=== PATIENT | female | born 1970 | race Two or more races ===

== ENCOUNTER 2021-03-24 13:20 | Emergency (ER) | payer OTHER ==
[~2021-03-24] VITALS: Ht 154.9 cm; Wt 72.7 kg
[2021-03-24] MEDS: MORPHINE SULFATE 4 MG/ML INJ. IM ONE (14:22)
--- NOTE | 2021-03-24 14:37 | RAD ---
CT THORACIC SPINE WO 03/24/2021 1:57 PM Indication: TRAUMATIC HEAD AND NECK PAIN, back pain Comparison: None. Technique: CT imaging of the thoracic spine was performed without contrast. Coronal and sagittal ref ormatted images were performed. One or more of the following dose reduction techniques were utilized: Automated exposure control (AEC), Adjustment of mA and/or kV according to patient size, Use of itera tive reconstruction technique such as ASiR, CT scan done according to ALARA and image gently/image wi sely. Findings: The thoracic spine is normally aligned. No acute fracture. Vertebral body heights are maintained with out compression deformity. The intervertebral disc spaces are normal. No aggressive lytic or blastic osseous lesion. No significant spinal canal stenosis or neural foraminal narrowing. The visualized lungs are clear. No pleural effusion. The visualized thoracic aorta is normal caliber. Impression: No acute osseous abnormality of the thoracic spine. Electronically signed by: Adiel Albarran MD (03/24/2021 2:34 PM) [facility]
--- NOTE | 2021-03-24 14:37 | RAD ---
CT HEAD AND C-SPINE WO Date: 03/24/2021 1:57 PM Clinical Indication: Reason: TRAUMATIC HEAD AND NECK PAIN / Spl. Instructions: / History: Comparison: None. Technique: 5 mm axial tomographic images were obtained of the head without contrast. These were view ed on brain and bone windows. CT imaging of the cervical spine was performed without contrast. Coron al and sagittal reformatted images were performed. One or more of the following dose reduction techni ques were utilized: Automated exposure control (AEC), Adjustment of mA and/or kV according to patient size, Use of iterative reconstruction technique such as ASiR, CT scan done according to ALARA and im age gently/image wisely HEAD FINDINGS: The brain parenchyma is normal in attenuation. No intra- or extra-axial mass or fluid collection. No acute hemorrhage. The ventricles are normal in size, shape, and morphology. The marin-white matter mauricio ction is normal. The basilar cisterns are patent. The visualized paranasal sinuses are normal. The visualized portions of the orbits and globes are no rmal. The mastoid air cells are clear. No aggressive osseous lesion or fracture. CERVICAL SPINE FINDINGS: Straightening of the cervical lordosis. No acute fracture. No aggressive lytic or blastic osseous les ion. Mild multilevel degenerative disc height loss. No high-grade spinal canal stenosis or neural foramina l narrowing. The thyroid gland is normal. No cervical lymphadenopathy. The visualized aerodigestive tract is unrem arkable. The visualized lung apices are clear. IMPRESSION: 1. No acute intracranial process. 2. No acute osseous abnormality of the cervical spine. Electronically signed by: Adiel Albarran MD (03/24/2021 2:34 PM) [facility]
--- NOTE | 2021-03-24 14:51 | PHYS DOC ---
Past Medical History Past Surgical History: No Surgical History (JACINTA STOVER MD) General Adult EDM: Chief Complaint: NECK PAIN HPI: HPI: Patient is a 50 year old female who presents with neck pain after work-related injury. Was working at [employer] when boxes fell on the back of her head and neck causing flexion of the neck. Estimated 30-60 pounds weight. Had immediate neck pain and fell to the ground. No loss of consciousness, however she is amnestic to the fall. Complaining of neck pain and arm weakness. States that she has some pain going into her bilateral shoulders but not down into her hands. She feels the weakness is worse in her left arm. (JACINTA STOVER MD) Review of Systems: Review of Systems: Constitutional: Denies fever or chills. [] Eyes: Denies change in visual acuity. [] HENT: Denies nasal congestion or sore throat. [] Respiratory: Denies cough or shortness of breath. [] Cardiovascular: Denies chest pain or edema. [] GI: Denies abdominal pain, nausea, vomiting, bloody stools or diarrhea. [] : Denies dysuria. [] Musculoskeletal: Reports neck pain Integument: Denies rash. [] Neurologic: Reports left arm weakness Endocrine: Denies polyuria or polydipsia. [] Lymphatic: Denies swollen glands. [] Psychiatric: Denies depression or anxiety. [] (JACINTA STOVER MD) Heart Score: C/O Chest Pain: No Risk Factors: Risk Factors: DM, Current or recent (<one month) smoker, HTN, HLP, family history of CAD, obesity. Risk Scores: Score 0 - 3: 2.5% MACE over next 6 weeks - Discharge Home Score 4 - 6: 20.3% MACE over next 6 weeks - Admit for Clinical Observation Score 7 - 10: 72.7% MACE over next 6 weeks - Early Invasive Strategies (JACINTA STOVER MD) C/O Chest Pain: N/A (JUAN BECK DO) Current Medications: Current Medications Medications (Trade) Dose Ordered Sig/Amanda Start Time Stop Time Status Last Admin Dose Admin Morphine Sulfate (Morphine Sulfate) 4 mg 1X ONCE 03/24/21 13:45 03/24/21 13:51 DC 03/24/21 14:22 4 MG (JACINTA STOVER MD) Allergies: Allergies: Allergies Coded Allergies Type Severity Reaction Last Updated Verified No Known Drug Allergies 03/24/21 No (JACINTA STOVER MD) Physical Exam: PE: Constitutional: Tearful, appears acutely uncomfortable HENT: No evidence of facial trauma/bruising. No midface tenderness or deformity. Eyes:conjunctiva normal, no discharge. [] Neck: + Midline C-spine tenderness to palpation going down into the thoracic spine in the midline Cardiovascular:Heart rate regular rhythm, no murmur [] Lungs & Thorax: Bilateral breath sounds clear to auscultation [] Abdomen: Bowel sounds normal, soft, no tenderness, no masses, no pulsatile masses. [] Skin: Warm, dry, no erythema, no rash. [] Back: + Midline thoracic tenderness to palpation Extremities: No tenderness, no cyanosis, no clubbing, ROM intact, no edema. [] Neurologic: Alert, oriented to person, place, time. Face is symmetric. Speech is normal. Cranial nerves III-XII intact. 5/5 strength in bilateral shoulder abduction, extension of the elbow, extension of the wrist 4/5 strength in bilateral pathology laboratory aide strength and elbow flexion (JACINTA STOVER MD) Current Patient Data: Vital Signs: Vital Signs Date Time Temp Pulse Resp B/P (MAP) Pulse Ox O2 Delivery O2 Flow Rate FiO2 03/24/21 14:22 18 100 03/24/21 13:38 97.5 84 227/107 (147) Room Air 97.5 (JACINTA STOVER MD) EKG: EKG: [] (JACINTA STOVER MD) Radiology/Procedures: Radiology/Procedures: [] Impression: [facility] [address] [place], [place] [id number] IMAGING REPORT Signed PATIENT: GABRIEL STEPHENSON ACCOUNT: [id number] : 1970 LOCATION: ER AGE: 50 SEX: F EXAM STATUS: PRE ER ORD. PHYSICIAN: JACINTA STOVER MD REASON: TRAUMATIC HEAD AND NECK PAIN PROCEDURE: CT THORACIC SPINE WO CONTRAST CT THORACIC SPINE WO 03/24/2021 1:57 PM Indication: TRAUMATIC HEAD AND NECK PAIN, back pain Comparison: None. Technique: CT imaging of the thoracic spine was performed without contrast. Coronal and sagittal reformatted images were performed. One or more of the following dose reduction techniques were utilized: Automated exposure control (AEC), Adjustment of mA and/or kV according to patient size, Use of iterative reconstruction technique such as ASiR, CT scan done according to ALARA and image gently/image wisely. Findings: The thoracic spine is normally aligned. No acute fracture. Vertebral body heights are maintained without compression deformity. The intervertebral disc spaces are normal. No aggressive lytic or blastic osseous lesion. No significant spinal canal stenosis or neural foraminal narrowing. The visualized lungs are clear. No pleural effusion. The visualized thoracic aorta is normal caliber. Impression: No acute osseous abnormality of the thoracic spine. Electronically signed by: Heidi Albarran MD (03/24/2021 2:34 PM) [facility] DICTATED and SIGNED BY: HEIDI ALBARRAN MD DATE: 03/24/21 [id number] [facility] [address] [place] [address] IMAGING REPORT Signed PATIENT: GABRIEL STEPHENSON ACCOUNT: [id number] : 1970 LOCATION: ER AGE: 50 SEX: F EXAM STATUS: PRE ER ORD. PHYSICIAN: JACINTA STOVER MD REASON: TRAUMATIC HEAD AND NECK PAIN PROCEDURE: CT HEAD AND CERVICAL SPINE WO CT HEAD AND C-SPINE WO Date: 03/24/2021 1:57 PM Clinical Indication: Reason: TRAUMATIC HEAD AND NECK PAIN / Spl. Instructions: / History: Comparison: None. Technique: 5 mm axial tomographic images were obtained of the head without contrast. These were viewed on brain and bone windows. CT imaging of the cervical spine was performed without contrast. Coronal and sagittal reformatted images were performed. One or more of the following dose reduction techniques were utilized: Automated exposure control (AEC), Adjustment of mA and/or kV according to patient size, Use of iterative reconstruction technique such as ASiR, CT scan done according to ALARA and image gently/image wisely HEAD FINDINGS: The brain parenchyma is normal in attenuation. No intra- or extra-axial mass or fluid collection. No acute hemorrhage. The ventricles are normal in size, shape, and morphology. The marin-white matter junction is normal. The basilar cisterns are patent. The visualized paranasal sinuses are normal. The visualized portions of the orbits and globes are normal. The mastoid air cells are clear. No aggressive osseous lesion or fracture. CERVICAL SPINE FINDINGS: Straightening of the cervical lordosis. No acute fracture. No aggressive lytic or blastic osseous lesion. Mild multilevel degenerative disc height loss. No high-grade spinal canal stenosis or neural foraminal narrowing. The thyroid gland is normal. No cervical lymphadenopathy. The visualized aerodigestive tract is unremarkable. The visualized lung apices are clear. IMPRESSION: 1. No acute intracranial process. 2. No acute osseous abnormality of the cervical spine. Electronically signed by: Heidi Albarran MD (03/24/2021 2:34 PM) [facility] DICTATED and SIGNED BY: HEIDI ALBARRAN MD DATE: 03/24/21 [id number] (JACINTA STOVER MD) Course & Med Decision Making: Course & Med Decision Making Pertinent Labs and Imaging studies reviewed. (See chart for details) Patient is a 50-year-old female who presents with neck pain and concerns of left arm weakness after boxes fell on her head and neck at work causing a flexion injury. On exam she does appear to have some weakness in elbow flexion and pathology laboratory aide strength bilaterally. She feels this is more prominent on the left. Patient was placed in a c-collar. CT head and neck, and thoracic spine were obtained and did not show acute traumatic injury. Given the concern for weakness ligamentous injury was considered. Discussed with neurosurgery team, who recommended MRI of the cervical spine. MRI pending at time of sign out. 175 (JACINTA STOVER MD) Course & Med Decision Making Assumed care at shift change disposition pending reevaluation and MRI imaging. MRI imaging reviewed no acute cord injury. Patient reexamined patient's pathology laboratory aide strength appears to be within normal limits bilateral. Patient's blood pressure noted to be elevated but states she has not taken her blood pressure medications. Plan to discharge patient home and have her take her home medications. Suspect elevation also might be related due to pain. Patient will be discharged home with instructions to take Tylenol and ibuprofen as needed for pain. Will prescribe patient Ultram and Flexeril. Patient will be provided work excuse for 7 days. (JUAN BECK DO) Dragon Disclaimer: Dragon Disclaimer: This electronic medical record was generated, in whole or in part, using a voice recognition dictation system. (JACINTA STOVER MD) Departure Departure Impression: Primary Impression: Neck pain Additional Impressions: Upper extremity weakness Back pain Disposition: HOME / SELF CARE / HOMELESS Condition: STABLE Patient Instructions: Back Pain, Adult, Soft Tissue Injury of the Neck Scripts Cyclobenzaprine Hcl (CYCLOBENZAPRINE HCL) 10 Mg Tablet 1 TAB PO QHS, #20 TAB Prov: JUAN BECK DO 03/24/21 Tramadol Hcl (ULTRAM) 50 Mg Tablet 1 TAB PO PRN Q6HRS PRN for pain MDD 4 Tablet(s) for 7 Days, #28 TAB 0 Refills Prov: JUAN BECK DO 03/24/21 JACINTA STOVER MD Mar 24, 2021 14:51 JUAN BECK DO Mar 24, 2021 19:40
--- NOTE | 2021-03-24 19:18 | RAD ---
MR CERVICAL SPINE WO DATE: 03/24/2021 6:09 PM INDICATION: HYPERFLEXION INJURY, ARM WEAKNESS TECHNIQUE: Multiplanar multisequence magnetic resonance imaging of the cervical spine was performed w ithout administration of intravenous contrast using the standard cervical spine protocol. COMPARISON: CT cervical spine 03/24/2021. FINDINGS: Straightening of the cervical lordosis. No acute fracture. Mild multilevel degenerative disc desicca tion and disc height loss. Bone marrow signal intensity is normal. The spinal cord is normal in signal intensity. On the limited views of the cranial cavity and brain, the cerebellum and sil have normal morphology and signal characteristics. No Chiari malformation. No soft tissue abnormality. Normal signal voids are present in the vertebral arteries. C2-3: No significant spinal canal stenosis or neural foraminal narrowing. C3-4: No significant spinal canal stenosis or neural foraminal narrowing. C4-5: Disc osteophyte complex. Uncovertebral hypertrophy. Mild bilateral neural foraminal narrowing. No spinal canal stenosis. C5-6: Disc osteophyte complex. Uncovertebral hypertrophy. Mild left neural foraminal narrowing. No sp inal canal stenosis. C6-7: No significant spinal canal stenosis or neural foraminal narrowing. C7-T1: No significant spinal canal stenosis or neural foraminal narrowing. IMPRESSION: 1. No abnormal spinal cord signal. 2. Mild cervical spondylosis. Electronically signed by: Adiel Albarran MD (03/24/2021 7:16 PM) [facility]
[2021-03-24] MEDS: BACITRACIN TOPICAL OINT PACKET. TP ONE (19:30)
[2021-03-24] MEDS: MORPHINE SULFATE 10 MG/ML VIAL. IM ONE (19:39)
[2021-03-24 19:45] VITALS: BP 197/86
[2021-03-24] MEDS ORDERED: CYCL10TA19 PO (19:54)
[2021-03-24] MEDS ORDERED: TRAM-48 PO (19:54)
== END 2021-03-24 20:10 | disposition home or self-care (01) ==
LOC: ER 13:20
DX: M54.2 Cervicalgia (principal); R53.1 Weakness; M47.812 Spondylosis without myelopathy or radiculopathy, cervical region; G89.11 Acute pain due to trauma; M54.6 Pain in thoracic spine; W18.39XA Other fall on same level, initial encounter; Y93.89 Activity, other specified; Y92.89 Other specified places as the place of occurrence of the external cause; Y99.8 Other external cause status
CPT/HCPCS: 70450; 72125; 72128; 72141; 96372; 99285; J2270; 99284